=== PATIENT | male | born 1955 | race Two or more races ===

== ENCOUNTER 2023-05-03 08:35 | Day surgery (SDC) | payer OTHER | END 2023-05-03 14:45 | disposition home or self-care (01) | LOC: AMB-ENDOS 08:35 | PROVIDERS: ATTEND Colon & Rectal Surgery | DX: K62.1 Rectal polyp (principal); K62.5 Hemorrhage of anus and rectum; K57.30 Diverticulosis of large intestine without perforation or abscess without bleeding; R19.4 Change in bowel habit; Z20.822 Contact with and (suspected) exposure to COVID-19 ==

== ENCOUNTER 2023-12-22 08:20 | Day surgery (SDC) | payer OTHER ==
[~2023-12-22 08:20] MED LIST: CLONAZEPAM0.125 MG; CYMBALTA20 MG; FOLIC ACID0.8 M1; GLUMETZA500 MG; HYDROCHLOROTHIA25 MG PO; HYDROCODONE CO120 ML; LEVO-T25 MCG; NEURONTIN300 MG; ZOLPIDEM TART1.75 MG
[2023-12-22] MEDS ORDERED: CEFTRIAXONE SODIUM 2,000 MG VIAL ONE (12:53)
[2023-12-22] MEDS ORDERED: METRONIDAZOLE/SODIUM CHLORIDE 500 MG/100 ML PIGGYBACK IV ONE ×2 (12:53→15:00)
[2023-12-22] MEDS ORDERED: CEFTRIAXONE SODIUM 2,000 MG VIAL IV ONE (15:00)
[2023-12-22] MEDS ORDERED: SUGAMMADEX SODIUM 200 MG/2 ML VIAL IV ONE (16:43)
[2023-12-26] MEDS ORDERED: SUGAMMADEX SODIUM 200 MG/2 ML VIAL IV ONE (14:00)
== END 2023-12-22 22:05 | disposition home or self-care (01) ==
LOC: CIR.AMB 08:20
PROVIDERS: ATTEND Colon & Rectal Surgery
DX: K56.51 Intestinal adhesions [bands], with partial obstruction (principal); K63.5 Polyp of colon; K57.30 Diverticulosis of large intestine without perforation or abscess without bleeding